=== PATIENT | male | born 1990 | race African-American/Black ===

== ENCOUNTER 2019-02-15 04:43 | Inpatient (IN) | payer MEDICAID ==
[2019-02-15] MEDS ORDERED: NORMAL SALINE 1000 ML 1,000 ML IV ONE ×3 (05:05→06:48)
--- NOTE | 2019-02-15 05:08 | ER Document Report ---
ED General - General Chief Complaint: General Weakness Stated Complaint: WEAKNESS Time Seen by Provider: 02/15/19 05:01 Notes: Patient is a 28-year-old male that comes emergency department for chief complaint of not feeling well for 1 week. He states he feels like he cannot eat but he also cannot get enough fluids. He states that he vomited a little bit a couple of times but there was not much to vomit. He denies diarrhea, fever/chills, particular areas of abdominal pain. He does report frequent urination. He denies any daily medications, denies any diagnosed medical history. He states up until he started feeling bad he was smoking marijuana almost daily but he denies recreational drugs otherwise. He denies smoking or alcohol. He denies any surgeries. When asked he does state he has diabetic family members. TRAVEL OUTSIDE OF THE [place] IN LAST 30 DAYS: No - Related Data Allergies/Adverse Reactions: No Known Allergies Allergy (Unverified 02/15/19 04:52) Past Medical History - General Information source: Patient - Social History Smoking Status: Current Some Day Smoker Drug Abuse: Marijuana Lives with: Spouse/Significant other Family History: Reviewed & Not Pertinent - Medical History Medical History: Negative Surgical Hx: Negative - Immunizations Immunizations up to date: Yes Hx Diphtheria, Pertussis, Tetanus Vaccination: Yes Review of Systems - Review of Systems Constitutional: See HPI EENT: No symptoms reported Cardiovascular: No symptoms reported Respiratory: No symptoms reported Gastrointestinal: See HPI Genitourinary: See HPI Male Genitourinary: No symptoms reported Musculoskeletal: No symptoms reported Skin: No symptoms reported Hematologic/Lymphatic: No symptoms reported Neurological/Psychological: No symptoms reported Physical Exam - Vital signs Vitals: Temp Pulse Resp BP Pulse Ox 97.5 F 120 H 20 149/109 H 99 02/15/19 04:47 02/15/19 04:47 02/15/19 04:47 02/15/19 04:47 02/15/19 04:47 - Notes Notes: GENERAL: Alert, mildly ill-appearing, nontoxic HEAD: Normocephalic, atraumatic. EYES: Pupils equal, round, and reactive to light. Extraocular movements intact. ENT: Oral mucosa extremely dry with parched tongue, tongue midline. Enlarged tonsils with erythema. Airway patent. Nares patent, no nasal septal hematoma, TM's intact. NECK: Full range of motion. Supple. Trachea midline. LUNGS: Clear to auscultation bilaterally, no wheezes, rales, or rhonchi. No respiratory distress. HEART: Tachycardic, normal rhythm. No murmur ABDOMEN: Minimal generalized tenderness, nonspecific, no guarding, bowel sounds present. GENITOURINARY: Deferred EXTREMITIES: Moves all 4 extremities spontaneously. No edema, normal radial and dorsalis pedis pulses bilaterally. No cyanosis. BACK: no cervical, thoracic, lumbar midline tenderness. No saddle anesthesia, normal distal neurovascular exam. NEUROLOGICAL: Alert and oriented x3. Normal speech. [cranial nerves II through XII grossly intact]. SKIN: Warm, dry, normal turgor. No rashes or lesions noted. Course - Re-evaluation Re-evalutation: Patient parched, has frequent urination, tachycardic, reporting symptoms of nausea and reduced appetite with generally feeling unwell for 1 week. Suspect new onset diabetes, given IV fluids, workup pending. Tachycardia almost resolved after IV fluids, Accu-Chek noted to be high, venous blood gas shows metabolic acidosis with pH of 7.13 and low bicarbonate. CBC shows mild leukocytosis with elevation of neutrophils. Urine shows ketones, elevated specific gravity, glucose. EKG shows sinus rhythm at a rate of 95, prolonged QT interval at 513, peaked T waves, no T wave inversions or ST segment changes in consecutive leads. Giving more IV fluids, setting up insulin drip. 2 good peripheral IVs placed. Chemistry finally resulted, shows severe hyperglycemia at greater than 1200, metabolic acidosis with bicarbonate of 8, anion gap of 36, creatinine of 1.57, potassium of 6.3. Insulin drip was started. Giving calcium gluconate. Patient will require ICU admission. I discussed with patient the results and his condition, he states gratefulness and agreement. Discussed patient/treatment with Dr. Dos Santos. Patient has been reevaluated twice more, his coloration is improved, he states he feels much better, his tachycardia has resolved, he appears to be improving on the insulin drip with fluids. Unfortunately recheck chemistry hemolyzed. 02/15/19 07:[address] Segovia, patient accepted to the hospital, he will be admitted to the ICU. - Vital Signs Vital signs: Temp Pulse Resp BP Pulse Ox 97.5 F 120 H 17 139/93 H 96 02/15/19 04:47 02/15/19 04:47 02/15/19 07:00 02/15/19 06:01 02/15/19 07:00 - Laboratory Result Diagrams: 02/15/19 05:25 02/15/19 05:25 Laboratory results interpreted by me: 02/15/19 02/15/19 02/15/19 05:10 05:25 05:25 WBC 10.9 H MCHC 30.8 L Seg Neutrophils % 79.8 H Absolute Neutrophils 8.7 H VBG pH VBG HCO3 Sodium 127.0 L Potassium 6.3 H* Chloride 83 L Carbon Dioxide 8 L* Anion Gap 36 H BUN 24 H Creatinine 1.57 H Est GFR (Non-Af Amer) 54 L Glucose 1291 H* POC Glucose Calcium 11.4 H Direct Bilirubin 0.6 H Alkaline Phosphatase 173 H Total Protein 9.4 H Albumin 5.7 H Urine Glucose (UA) >=500 H Urine Ketones 80 H Urine Blood SMALL H 02/15/19 02/15/19 05:25 05:40 WBC MCHC Seg Neutrophils % Absolute Neutrophils VBG pH 7.17 L* VBG HCO3 12.5 L Sodium Potassium Chloride Carbon Dioxide Anion Gap BUN Creatinine Est GFR (Non-Af Amer) Glucose POC Glucose > 550 H* Calcium Direct Bilirubin Alkaline Phosphatase Total Protein Albumin Urine Glucose (UA) Urine Ketones Urine Blood - EKG Interpretation by Me Additional EKG results interpreted by me: EKG shows sinus rhythm at a rate of 95, prolonged QT interval at 513, peaked T waves, no T wave inversions or ST segment changes in consecutive leads. Critical Care Note - Critical Care Note Total time excluding time spent on procedures (mins): 40 - New-onset diabetes, DKA, hyperkalemia Comments: Please allow 40 minutes of critical care time for evaluation and management of patient with new onset diabetes, DKA, hyperkalemia, acute renal failure. Multiple interventions including IV fluids, calcium gluconate, insulin drip. Multiple re-evaluations. Consultation and admission to the ICU. Discharge - Discharge Clinical Impression: New onset type 1 diabetes mellitus, uncontrolled, Hyperkalemia DKA (diabetic ketoacidoses) Qualifiers: Diabetes mellitus type: type 1 Diabetes mellitus complication detail: without coma Qualified Code(s): E10.10 - Type 1 diabetes mellitus with ketoacidosis without coma Acute renal failure Qualifiers: Acute renal failure type: unspecified Qualified Code(s): N17.9 - Acute kidney failure, unspecified Condition: Serious Disposition: ADMITTED INPATIENT Admitting Provider: Hospitalist Unit Admitted: ICU
[2019-02-15 05:47] LABS: ABSOLUTE LYMPHOCYTES (AUTO) 1.4 10^3/uL (0.5-4.7); ABSOLUTE MONOCYTES (AUTO) 0.8 10^3/uL (0.1-1.4); ABSOLUTE NEUT (AUTO) 8.7 10^3/uL (1.7-8.2); BASOPHILS % (AUTO) 0.2 % (0-2); HEMATOCRIT 48.4 % (37.9-51.0); HEMOGLOBIN 14.9 g/dL (13.5-17.0); LYMPHOCYTES % (AUTO) 13.1 % (13-45); MEAN CORPUSCULAR HEMOGLOBIN 27.3 pg (27.0-33.4); MEAN CORPUSCULAR HGB CONC 30.8 g/dL (32.0-36.0); MEAN CORPUSCULAR VOLUME 89 fl (80-97); MONOCYTES % (AUTO) 6.9 % (3-13); PLATELET COUNT 370 10^3/uL (150-450); RED BLOOD COUNT 5.46 10^6/uL (4.35-5.55); RED CELL DISTRIBUTION WIDTH 13.8 % (11.5-14.0); SEGMENTED NEUTROPHILS % (AUTO) 79.8 % (42-78); TOTAL CELLS COUNTED % (AUTO) 100 %; WHITE BLOOD COUNT 10.9 10^3/uL (4.0-10.5)
[2019-02-15 05:53] LABS: VENOUS BLOOD HCO3 12.5 mmol/L (20-32); VENOUS BLOOD PCO2 35.1 mmHg (35-63)
[2019-02-15 05:55] LABS: VENOUS BLOOD PH 7.17 (7.30-7.42)
[2019-02-15 06:06] LABS: APPEARANCE,URINE CLEAR; BILIRUBIN,URINE NEGATIVE (NEGATIVE); COLOR,URINE COLORLESS; GLUCOSE, URINE >=500 mg/dL (NEGATIVE); KETONES,URINE 80 mg/dL (NEGATIVE); LEUKOCYTE ESTERASE,URINE NEGATIVE (NEGATIVE); NITRITE,URINE NEGATIVE (NEGATIVE); PROTEIN,URINE NEGATIVE (NEGATIVE); URINE SPECIFIC GRAVITY 1.025; UROBILINOGEN,URINE NEGATIVE mg/dL (<2.0)
[2019-02-15 06:09] LABS: ALANINE AMINOTRANSFERASE 50 U/L (21-72); ALBUMIN 5.7 g/dL (3.5-5.0); ALKALINE PHOSPHATASE 173 U/L (38-126); ASPARTATE AMINO TRANSFERASE 26 U/L (17-59); BILIRUBIN,DIRECT 0.6 mg/dL (0.0-0.4); BILIRUBIN,TOTAL 0.8 mg/dL (0.2-1.3); BLOOD UREA NITROGEN 24 mg/dL (7-20); CALCIUM 11.4 mg/dL (8.4-10.2); LIPASE 89.1 U/L (23-300); TOTAL PROTEIN 9.4 g/dL (6.3-8.2)
[2019-02-15 06:14] LABS: CHLORIDE 83 mmol/L (98-107)
[2019-02-15] MEDS ORDERED: DEXTROSE 40% GEL 15 GM TUBE PO PRN ×4 (06:14→08:36)
[2019-02-15] MEDS ORDERED: GLUCAGON,HUMAN RECOMB 1 MG INJ IM PRN ×2 (06:14→08:36)
[2019-02-15] MEDS ORDERED: DEXTROSE 50%-WATER 25 GM/50 ML DISP.SYRIN IV PRN ×4 (06:14→08:36)
[2019-02-15] MEDS ORDERED: INSULIN REG, HUMAN 100 UNIT/ML 3 ML VIAL (PYX) IV ONE (06:15)
[2019-02-15 06:37] LABS: POTASSIUM 6.3 mmol/L (3.6-5.0)
[2019-02-15 06:38] LABS: ANION GAP 36 (5-19); CARBON DIOXIDE 8 mmol/L (22-30)
[2019-02-15 06:48] LABS: GLUCOSE 1291 mg/dL (75-110)
[2019-02-15] MEDS ORDERED: CALCIUM GLUCONATE 1000 MG/10 ML INJ IV ONE (06:49)
[2019-02-15] MEDS: NORMAL SALINE 1000 ML 1,000 ML IV PRN ×3 (07:17→17:11)
[2019-02-15 08:05] LABS: BLOOD UREA NITROGEN 22 mg/dL (7-20); CALCIUM 11.4 mg/dL (8.4-10.2); POTASSIUM 5.9 mmol/L (3.6-5.0)
[2019-02-15] MEDS ORDERED: ONDANSETRON 4 MG TAB.RAPDIS PO PRN (08:09)
[2019-02-15] MEDS ORDERED: ACETAMINOPHEN 325 MG TABLET PO PRN (08:09)
[2019-02-15] MEDS ORDERED: NORMAL SALINE 1000 ML 1,000 ML IV PRN (08:09)
[2019-02-15 08:11] LABS: CHLORIDE 95 mmol/L (98-107); SODIUM 135.7 mmol/L (137-145)
[2019-02-15 08:16] LABS: ANION GAP 32 (5-19)
[2019-02-15 08:21] LABS: CARBON DIOXIDE 9 mmol/L (22-30); GLUCOSE 1007 mg/dL (75-110)
[2019-02-15] MEDS: NORMAL SALINE 100 ML with INSULIN REGULAR, HUMAN 100 UNIT IV PRN ×4 (08:35→14:01)
[2019-02-15] MEDS: ENOXAPARIN SODIUM INJ 30 MG/0.3 ML DISP.SYRIN SUBCUT SCH (10:55)
[2019-02-15] MEDS: FAMOTIDINE 20 MG TABLET PO SCH ×2 (10:56→22:15)
[2019-02-15 14:41] LABS: BLOOD UREA NITROGEN 18 mg/dL (7-20); CALCIUM 10.8 mg/dL (8.4-10.2); CHLORIDE 104 mmol/L (98-107); GLUCOSE 337 mg/dL (75-110)
[2019-02-15 14:48] LABS: CARBON DIOXIDE 15 mmol/L (22-30); SODIUM 141.6 mmol/L (137-145)
[2019-02-15 14:53] LABS: ANION GAP 23 (5-19); POTASSIUM 4.7 mmol/L (3.6-5.0)
--- NOTE | 2019-02-15 16:51 | PDOC H&P ---
History of Present Illness Admission Date/PCP: 02/15/19 07:53 Patient complains of: High blood glucose History of Present Illness: RISHI RIVERA is a 28 year old male with no PMH who presented to [facility] for a one-week history of nausea and weakness. Patient states that he has been unable to tolerate solid foods, he only wants to drink liquids. The patient also reports that he has been unable to sleep because he is getting up approximately every hour to urinate. Laboratory studies upon arrival to the emergency department reveal a blood glucose of 1291. Metabolic acidosis (pH 7.17 bicarb 8). Acute renal failure (creatinine 1.57). Hypernatremia, when sodium corrected for hyperglycemia (Na 146). Urine was positive for ketones, glucose > 500. Unfortunately for this young man, he has been diagnosed with type 1 diabetes today. Upon assessment, the patient is resting comfortably in bed on room air. He endorses polyuria, polydipsia, mild nausea, heat intolerance. He is awake, alert and oriented. Able to answer all questions appropriately. Abdomen is soft, nontender, nondistended. Lungs are clear to auscultation. S1-S2. Mucous membranes are pink and moist. Good skin turgor. Lengthy discussion about inpatient treatment plan as well as ongoing treatment plan once patient is discharged from [facility]. Plan to admit patient to ICU for metabolic acidosis, diabetic ketoacidosis and acute renal failure. Past Medical History Medical History: None EENT Medical History: Reports: Throat - strep throat Past Surgical History Past Surgical History: Reports: None Social History Information Source: Patient Lives with: Spouse/Significant other Smoking Status: Current Some Day Smoker Frequency of Alcohol Use: None Hx Recreational Drug Use: Yes Drugs: Marijuana Hx Prescription Drug Abuse: No - Advance Directive Resuscitation Status: Full Code Family History Family History: DM - mother Parental Family History Reviewed: Yes Children Family History Reviewed: NA Sibling(s) Family History Reviewed.: Yes Medication/Allergy Home Medications: No Home Medications 02/15/19 Allergies/Adverse Reactions: No Known Allergies Allergy (Unverified 02/15/19 04:52) Review of Systems All systems: reviewed and no additional remarkable complaints except as stated Physical Exam Vital Signs: Temp Pulse Resp BP Pulse Ox 98.3 F 102 H 25 H 141/85 H 98 02/15/19 12:00 02/15/19 12:00 02/15/19 14:00 02/15/19 13:58 02/15/19 14:00 Intake & Output 02/14/19 02/15/19 02/16/19 06:59 06:59 06:59 Intake Total 4111 Output Total 3175 Balance 936 Weight 113.398 kg 109.5 kg General appearance: PRESENT: well-developed, well-nourished Head exam: PRESENT: atraumatic Eye exam: PRESENT: conjunctiva pink, PERRLA Mouth exam: PRESENT: moist, tongue midline, other - Enlarged tonsils Throat exam: PRESENT: tonsillar erythema, tonsillogmegaly. ABSENT: tonsillar exudate Neck exam: PRESENT: full ROM Respiratory exam: PRESENT: clear to auscultation yovani, symmetrical, unlabored Cardiovascular exam: PRESENT: RRR Pulses: PRESENT: normal radial pulses, normal dorsalis pedis pul Vascular exam: PRESENT: normal capillary refill GI/Abdominal exam: PRESENT: normal bowel sounds, soft. ABSENT: distended, tenderness Rectal exam: PRESENT: deferred Extremities exam: PRESENT: full ROM. ABSENT: pedal edema Musculoskeletal exam: PRESENT: ambulatory, full ROM, normal inspection Neurological exam: PRESENT: alert, awake, oriented to person, oriented to place, oriented to time, oriented to situation Psychiatric exam: PRESENT: appropriate affect Skin exam: PRESENT: dry, intact, normal color Results Laboratory Results: 02/15/19 05:25 02/15/19 14:06 02/15/19 02/15/19 02/15/19 05:10 05:25 05:25 WBC 10.9 H RBC 5.46 Hgb 14.9 Hct 48.4 MCV 89 MCH 27.3 MCHC 30.8 L RDW 13.8 Plt Count 370 Seg Neutrophils % 79.8 H Lymphocytes % 13.1 Monocytes % 6.9 Eosinophils % 0.0 Basophils % 0.2 Absolute Neutrophils 8.7 H Absolute Lymphocytes 1.4 Absolute Monocytes 0.8 Absolute Eosinophils 0.0 Absolute Basophils 0.0 VBG pH VBG pCO2 VBG HCO3 VBG Base Excess Sodium 127.0 L Potassium 6.3 H* Chloride 83 L Carbon Dioxide 8 L* Anion Gap 36 H BUN 24 H Creatinine 1.57 H Est GFR ( Amer) > 60 Est GFR (Non-Af Amer) 54 L Glucose 1291 H* Calcium 11.4 H Total Bilirubin 0.8 AST 26 ALT 50 Alkaline Phosphatase 173 H Total Protein 9.4 H Albumin 5.7 H Lipase 89.1 Urine Color COLORLESS Urine Appearance CLEAR Urine pH 5.0 Ur Specific [place] 1.025 Urine Protein NEGATIVE Urine Glucose (UA) >=500 H Urine Ketones 80 H Urine Blood SMALL H Urine Nitrite NEGATIVE Ur Leukocyte Esterase NEGATIVE Urine WBC (Auto) 1 Urine RBC (Auto) 1 02/15/19 02/15/19 02/15/19 05:25 06:55 07:30 WBC RBC Hgb Hct MCV MCH MCHC RDW Plt Count Seg Neutrophils % Lymphocytes % Monocytes % Eosinophils % Basophils % Absolute Neutrophils Absolute Lymphocytes Absolute Monocytes Absolute Eosinophils Absolute Basophils VBG pH 7.17 L* VBG pCO2 35.1 VBG HCO3 12.5 L VBG Base Excess -15.0 Sodium Cancelled 135.7 L Potassium Cancelled 5.9 H Chloride Cancelled 95 L Carbon Dioxide Cancelled 9 L* Anion Gap Cancelled 32 H BUN Cancelled 22 H Creatinine Cancelled 1.54 H Est GFR ( Amer) Cancelled > 60 Est GFR (Non-Af Amer) Cancelled 55 L Glucose Cancelled 1007 H* Calcium Cancelled 11.4 H Total Bilirubin AST ALT Alkaline Phosphatase Total Protein Albumin Lipase Urine Color Urine Appearance Urine pH Ur Specific [place] Urine Protein Urine Glucose (UA) Urine Ketones Urine Blood Urine Nitrite Ur Leukocyte Esterase Urine WBC (Auto) Urine RBC (Auto) 02/15/19 14:06 WBC RBC Hgb Hct MCV MCH MCHC RDW Plt Count Seg Neutrophils % Lymphocytes % Monocytes % Eosinophils % Basophils % Absolute Neutrophils Absolute Lymphocytes Absolute Monocytes Absolute Eosinophils Absolute Basophils VBG pH VBG pCO2 VBG HCO3 VBG Base Excess Sodium 141.6 Potassium 4.7 D Chloride 104 Carbon Dioxide 15 L Anion Gap 23 H BUN 18 Creatinine 1.16 Est GFR ( Amer) > 60 Est GFR (Non-Af Amer) > 60 Glucose 337 H Calcium 10.8 H Total Bilirubin AST ALT Alkaline Phosphatase Total Protein Albumin Lipase Urine Color Urine Appearance Urine pH Ur Specific [place] Urine Protein Urine Glucose (UA) Urine Ketones Urine Blood Urine Nitrite Ur Leukocyte Esterase Urine WBC (Auto) Urine RBC (Auto) Status: Imported from PACS Assessment and Plan - Diagnosis (1) Metabolic acidosis Is this a current diagnosis for this admission?: Yes Plan: Secondary to DKA and undiagnosed diabetes pH 7.1 on initial ABG remaining plan listed below (2) DKA (diabetic ketoacidoses) Qualifiers: Diabetes mellitus type: type 1 Diabetes mellitus complication detail: without coma Qualified Code(s): E10.10 - Type 1 diabetes mellitus with ketoacidosis without coma Is this a current diagnosis for this admission?: Yes Plan: Stemming from undiagnosed type 1 diabetes Patient presented with BG > 1200 pH 7.1 HCO3 9 (+) ketonuria Initiated titrating insulin gtt Maintenance IVF with normal saline Switch to D5 half-normal saline once BG<250 (3) New onset type 1 diabetes mellitus, uncontrolled Is this a current diagnosis for this admission?: Yes Plan: New diagnosis of type 1 diabetes No family history of IDDM, mother was diagnosed with gestational diabetes and now type 2 diabetes Patient endorses polyuria & polydipsia Consulted peer educator Consulted registered dietitian Consulted discharge planning for medication assistance, patient states he may or may not have Medicaid Patient will need endocrinology follow-up once discharged home (4) Acute renal failure Qualifiers: Acute renal failure type: unspecified Qualified Code(s): N17.9 - Acute kidney failure, unspecified Is this a current diagnosis for this admission?: Yes Plan: Secondary to hypovolemia stemming from dehydration/DKA Patient endorses polyuria Nearly 3L output today 3L IVF bolus in ED Continue maintenance IVF ARF should improve as patient is rehydrated and once DKA is controlled (5) Hyperkalemia Is this a current diagnosis for this admission?: Yes Plan: Secondary to DKA Should resolve with insulin administration and decreasing blood glucose We will continue to monitor with serial BMPs - Time Time Spent with patient: 15-24 minutes Total Critical Time (Minutes): 20 Medications reviewed and adjusted accordingly: Yes Anticipated discharge: Home - Inpatient Certification Based on my medical assessment, after consideration of the patient's comorbidities, presenting symptoms, or acuity I expect that the services needed warrant INPATIENT care.: Yes I certify that my determination is in accordance with my understanding of Medicare's requirements for reasonable and necessary INPATIENT services [42 CFR 412.3e].: Yes Medical Necessity: Need For IV Fluids, Risk of Complication if Not Cared For in Hospital - Plan Summary Plan Summary: Admit to ICU on an insulin drip. Serial chemistries. Likely downgrade to IMCU tomorrow.
[2019-02-15 17:45] LABS: ANION GAP 8 (5-19); BLOOD UREA NITROGEN 8 mg/dL (7-20); CALCIUM 9.2 mg/dL (8.4-10.2); CHLORIDE 104 mmol/L (98-107); GLUCOSE 148 mg/dL (75-110); POTASSIUM 3.9 mmol/L (3.6-5.0); SODIUM 137.6 mmol/L (137-145)
[2019-02-15 18:02] LABS: CARBON DIOXIDE 26 mmol/L (22-30)
--- NOTE | 2019-02-15 22:55 | EKG REPORT ---
SEVERITY:- ABNORMAL ECG - SINUS RHYTHM PROLONGED QT INTERVAL : Confirmed by: Alisia Talbot 15-Feb-2019 22:54:32
[2019-02-16] MEDS: NORMAL SALINE 1000 ML 1,000 ML IV PRN ×2 (03:06→05:59)
[2019-02-16] MEDS ORDERED: DEXTROSE 5%-1/2 NORMAL SALINE 1,000 ML IV PRN (08:10)
[2019-02-16 09:16] LABS: ALANINE AMINOTRANSFERASE 39 U/L (21-72); ALBUMIN 3.8 g/dL (3.5-5.0); ALKALINE PHOSPHATASE 93 U/L (38-126); ASPARTATE AMINO TRANSFERASE 27 U/L (17-59); BLOOD UREA NITROGEN 9 mg/dL (7-20); CHLORIDE 108 mmol/L (98-107); TOTAL PROTEIN 6.5 g/dL (6.3-8.2)
[2019-02-16 09:18] LABS: ANION GAP 13 (5-19); SODIUM 137.3 mmol/L (137-145)
[2019-02-16 09:19] LABS: BILIRUBIN,DIRECT 0.3 mg/dL (0.0-0.4); BILIRUBIN,TOTAL 0.8 mg/dL (0.2-1.3); CALCIUM 9.3 mg/dL (8.4-10.2); GLUCOSE 158 mg/dL (75-110); POTASSIUM 3.5 mmol/L (3.6-5.0)
[2019-02-16 10:18] LABS: ABSOLUTE BASOPHILS # (AUTO) 0.1 10^3/uL (0.0-0.2); ABSOLUTE EOSINOPHILS # (AUTO) 0.1 10^3/uL (0.0-0.6); ABSOLUTE LYMPHOCYTES (AUTO) 3.5 10^3/uL (0.5-4.7); ABSOLUTE NEUT (AUTO) 4.8 10^3/uL (1.7-8.2); EOSINOPHILS % (AUTO) 0.5 % (0-6); HEMATOCRIT 36.6 % (37.9-51.0); LYMPHOCYTES % (AUTO) 36.9 % (13-45); MEAN CORPUSCULAR HEMOGLOBIN 26.8 pg (27.0-33.4); MEAN CORPUSCULAR HGB CONC 33.5 g/dL (32.0-36.0); MONOCYTES % (AUTO) 10.7 % (3-13); PLATELET COUNT 293 10^3/uL (150-450); RED BLOOD COUNT 4.58 10^6/uL (4.35-5.55); RED CELL DISTRIBUTION WIDTH 13.1 % (11.5-14.0); SEGMENTED NEUTROPHILS % (AUTO) 50.9 % (42-78); TOTAL CELLS COUNTED % (AUTO) 100 %; WHITE BLOOD COUNT 9.5 10^3/uL (4.0-10.5)
[2019-02-16 10:19] LABS: HEMOGLOBIN 12.3 g/dL (13.5-17.0); MEAN CORPUSCULAR VOLUME 80 fl (80-97)
[2019-02-16 10:20] LABS: CARBON DIOXIDE 16 mmol/L (22-30)
[2019-02-16] MEDS: FAMOTIDINE 20 MG TABLET PO SCH ×2 (10:23→22:56)
[2019-02-16] MEDS: ENOXAPARIN SODIUM INJ 30 MG/0.3 ML DISP.SYRIN SUBCUT SCH (10:23)
[2019-02-16] MEDS ORDERED: GLUCAGON,HUMAN RECOMB 1 MG INJ IM PRN (12:41)
[2019-02-16] MEDS ORDERED: DEXTROSE 40% GEL 15 GM TUBE PO PRN ×2 (12:41)
[2019-02-16] MEDS ORDERED: DEXTROSE 50%-WATER 25 GM/50 ML DISP.SYRIN IV PRN ×2 (12:41)
[2019-02-16 15:50] LABS: ANION GAP 13 (5-19); BLOOD UREA NITROGEN 8 mg/dL (7-20); CALCIUM 9.4 mg/dL (8.4-10.2); CARBON DIOXIDE 18 mmol/L (22-30); CHLORIDE 106 mmol/L (98-107); GLUCOSE 245 mg/dL (75-110); POTASSIUM 3.4 mmol/L (3.6-5.0); SODIUM 136.5 mmol/L (137-145)
[2019-02-16] MEDS ORDERED: INSULIN NPH (ISOPHANE), HUMAN 100 UNIT/ML 3 ML SUBCUT SCH (16:00)
--- NOTE | 2019-02-16 17:24 | PDOC PROGRESS REPORT ---
Subjective Progress Note for:: 02/16/19 Subjective:: 28 y.o. M admitted with DKA and new type 1 diabetes diagnosis. The patient was seen this morning on rounds, he is resting comfortably in bed on room air. Blood glucose control was achieved with the insulin gtt. Patient no longer is acidotic. Plan to transition to SC insulin, initiate diabetic diet and downgrade to IMCU. Patient and nursing staff have no complaints or concerns. Patient's physical exam is completely benign. Reason For Visit: DKA, NEW ONSET DIABETES Physical Exam Vital Signs: Temp Pulse Resp BP Pulse Ox 98.1 F 76 19 158/93 H 99 02/16/19 12:00 02/16/19 12:00 02/16/19 14:00 02/16/19 13:59 02/16/19 14:00 Intake & Output 02/15/19 02/16/19 02/17/19 06:59 06:59 06:59 Intake Total 7044 1000 Output Total 4075 560 Balance 2969 440 Weight 113.398 kg 113.9 kg General appearance: PRESENT: no acute distress, well-developed, well-nourished Head exam: PRESENT: atraumatic, normocephalic Eye exam: PRESENT: conjunctiva pink, EOMI, PERRLA. ABSENT: scleral icterus Ear exam: PRESENT: normal external ear exam Mouth exam: PRESENT: moist, tongue midline Neck exam: ABSENT: carotid bruit, JVD, lymphadenopathy, thyromegaly Respiratory exam: PRESENT: clear to auscultation yovani. ABSENT: rales, rhonchi, wheezes Cardiovascular exam: PRESENT: RRR. ABSENT: diastolic murmur, rubs, systolic murmur Pulses: PRESENT: normal dorsalis pedis pul Vascular exam: PRESENT: normal capillary refill GI/Abdominal exam: PRESENT: normal bowel sounds, soft. ABSENT: distended, guarding, mass, organolmegaly, rebound, tenderness Rectal exam: PRESENT: deferred Extremities exam: PRESENT: full ROM. ABSENT: calf tenderness, clubbing, pedal edema Neurological exam: PRESENT: alert, awake, oriented to person, oriented to place, oriented to time, oriented to situation, CN II-XII grossly intact. ABSENT: motor sensory deficit Psychiatric exam: PRESENT: appropriate affect, normal mood. ABSENT: homicidal ideation, suicidal ideation Skin exam: PRESENT: dry, intact, warm. ABSENT: cyanosis, rash Results Laboratory Results: 02/16/19 10:00 02/16/19 15:25 02/15/19 02/16/19 02/16/19 17:38 08:36 08:36 WBC Cancelled RBC Cancelled Hgb Cancelled Hct Cancelled MCV Cancelled MCH Cancelled MCHC Cancelled RDW Cancelled Plt Count Cancelled Seg Neutrophils % Cancelled Lymphocytes % Cancelled Monocytes % Cancelled Eosinophils % Cancelled Basophils % Cancelled Absolute Neutrophils Cancelled Absolute Lymphocytes Cancelled Absolute Monocytes Cancelled Absolute Eosinophils Cancelled Absolute Basophils Cancelled Sodium 137.6 137.3 Potassium 3.9 3.5 L Chloride 104 108 H Carbon Dioxide 26 D 16 L D Anion Gap 8 13 BUN 8 9 Creatinine 0.62 0.83 Est GFR ( Amer) > 60 > 60 Est GFR (Non-Af Amer) > 60 > 60 Glucose 148 H 158 H Calcium 9.2 9.3 Magnesium 1.9 Total Bilirubin 0.8 AST 27 ALT 39 Alkaline Phosphatase 93 Total Protein 6.5 Albumin 3.8 TSH 02/16/19 02/16/19 02/16/19 08:36 10:00 15:25 WBC 9.5 RBC 4.58 Hgb 12.3 L D Hct 36.6 L MCV 80 D MCH 26.8 L MCHC 33.5 RDW 13.1 Plt Count 293 Seg Neutrophils % 50.9 Lymphocytes % 36.9 Monocytes % 10.7 Eosinophils % 0.5 Basophils % 1.0 Absolute Neutrophils 4.8 Absolute Lymphocytes 3.5 Absolute Monocytes 1.0 Absolute Eosinophils 0.1 Absolute Basophils 0.1 Sodium 136.5 L Potassium 3.4 L Chloride 106 Carbon Dioxide 18 L Anion Gap 13 BUN 8 Creatinine 0.90 Est GFR ( Amer) > 60 Est GFR (Non-Af Amer) > 60 Glucose 245 H Calcium 9.4 Magnesium 1.8 Total Bilirubin AST ALT Alkaline Phosphatase Total Protein Albumin TSH 0.38 L Status: Imported from PACS Assessment and Plan - Diagnosis (1) Metabolic acidosis Is this a current diagnosis for this admission?: Yes Plan: Resolved secondary to DKA and undiagnosed diabetes remaining plan listed below (2) DKA (diabetic ketoacidoses) Qualifiers: Diabetes mellitus type: type 1 Diabetes mellitus complication detail: without coma Qualified Code(s): E10.10 - Type 1 diabetes mellitus with ketoacidosis without coma Is this a current diagnosis for this admission?: Yes Plan: Resolved Stemming from undiagnosed type 1 diabetes Patient presented with BG > 1200 pH 7.1 HCO3 9 (+) ketonuria No longer requiring insulin gtt. Patient tolerating p.o. diet Total daily dose 0.4 units/kg/day = 45 units Initiate 20 units Lantus daily, roughly half of the TDD Humalog sliding scale insulin before meals & at bedtime (3) New onset type 1 diabetes mellitus, uncontrolled Is this a current diagnosis for this admission?: Yes Plan: New diagnosis of type 1 diabetes No family history of IDDM, mother was diagnosed with gestational diabetes and now type 2 diabetes Patient endorses polyuria & polydipsia Consulted natural resources extension educator Consulted registered dietitian Consulted discharge planning for medication assistance, patient states he may or may not have Medicaid Patient will need endocrinology follow-up once discharged home (4) Acute renal failure Qualifiers: Acute renal failure type: unspecified Qualified Code(s): N17.9 - Acute kidney failure, unspecified Is this a current diagnosis for this admission?: Yes Plan: Resolved. Creatinine now 0.9 secondary to hypovolemia stemming from dehydration/DKA Treated with IVF ARF should improve as patient is rehydrated and once DKA is controlled (5) Hyperkalemia Is this a current diagnosis for this admission?: Yes Plan: Resolved Secondary to DKA Resolved with insulin administration and decreasing blood glucose We will continue to monitor with serial BMPs - Time Time Spent with patient: 25-34 minutes Medications reviewed and adjusted accordingly: Yes Anticipated discharge: Home Within: within 48 hours - Inpatient Certification Based on my medical assessment, after consideration of the patient's comorbidities, presenting symptoms, or acuity I expect that the services needed warrant INPATIENT care.: Yes I certify that my determination is in accordance with my understanding of Medicare's requirements for reasonable and necessary INPATIENT services [42 CFR 412.3e].: Yes Medical Necessity: Risk of Complication if Not Cared For in Hospital - Plan Summary Plan Summary: Discontinue insulin GTT. Initiate diabetic diet. Discontinue IVF. Downgrade to IMCU Initiate subcutaneous insulin Anticipated discharge 24-48 hours
[2019-02-16] MEDS: INSULIN GLARGINE,HUM.REC.ANLOG 1,000 UNIT/10 ML VIAL SUBCUT SCH (17:46)
[2019-02-16] MEDS: INSULIN LISPRO 100 UNIT/ML 3 ML VIAL SUBCUT SCH ×2 (17:47→22:56)
[2019-02-17 06:19] LABS: HEMATOCRIT 37.9 % (37.9-51.0); HEMOGLOBIN 12.7 g/dL (13.5-17.0); MEAN CORPUSCULAR HGB CONC 33.6 g/dL (32.0-36.0); MEAN CORPUSCULAR VOLUME 81 fl (80-97); PLATELET COUNT 295 10^3/uL (150-450); WHITE BLOOD COUNT 7.8 10^3/uL (4.0-10.5)
[2019-02-17 06:45] LABS: ALANINE AMINOTRANSFERASE 40 U/L (21-72); ALBUMIN 4.3 g/dL (3.5-5.0); ALKALINE PHOSPHATASE 102 U/L (38-126); ANION GAP 19 (5-19); ASPARTATE AMINO TRANSFERASE 30 U/L (17-59); BILIRUBIN,DIRECT 0.4 mg/dL (0.0-0.4); BILIRUBIN,TOTAL 1.3 mg/dL (0.2-1.3); BLOOD UREA NITROGEN 7 mg/dL (7-20); CALCIUM 10.1 mg/dL (8.4-10.2); CARBON DIOXIDE 17 mmol/L (22-30); CHLORIDE 102 mmol/L (98-107); GLUCOSE 251 mg/dL (75-110); POTASSIUM 3.6 mmol/L (3.6-5.0); SODIUM 138.4 mmol/L (137-145); TOTAL PROTEIN 7.1 g/dL (6.3-8.2)
[2019-02-17] MEDS ORDERED: INSULIN NPH (ISOPHANE), HUMAN 100 UNIT/ML 3 ML SUBCUT SCH (08:00)
[2019-02-17] MEDS: INSULIN LISPRO 100 UNIT/ML 3 ML VIAL SUBCUT SCH ×4 (08:20→22:14)
[2019-02-17] MEDS: ENOXAPARIN SODIUM INJ 30 MG/0.3 ML DISP.SYRIN SUBCUT SCH (09:07)
[2019-02-17] MEDS: FAMOTIDINE 20 MG TABLET PO SCH ×2 (09:22→22:14)
[2019-02-17] MEDS: INSULIN GLARGINE,HUM.REC.ANLOG 1,000 UNIT/10 ML VIAL SUBCUT SCH (17:03)
[2019-02-17] MEDS: METOPROLOL SUCCINATE 25 MG TAB.SR.24H PO SCH (17:03)
[2019-02-17] MEDS ORDERED: INSULIN GLARGINE,HUM.REC.ANLOG 1,000 UNIT/10 ML VIAL SUBCUT SCH (18:00)
[2019-02-17] MEDS ORDERED: DEXTROSE 50%-WATER 25 GM/50 ML DISP.SYRIN IV PRN ×2 (19:34)
[2019-02-17] MEDS ORDERED: DEXTROSE 40% GEL 15 GM TUBE PO PRN ×2 (19:34)
[2019-02-17] MEDS ORDERED: GLUCAGON,HUMAN RECOMB 1 MG INJ IM PRN (19:34)
[2019-02-17] MEDS ORDERED: INSULIN GLARGINE,HUM.REC.ANLOG 1,000 UNIT/10 ML VIAL (PYX) SUBCUT ONE (19:39)
--- NOTE | 2019-02-17 19:42 | PDOC PROGRESS REPORT ---
Subjective Progress Note for:: 02/17/19 Subjective:: 28 y.o. M admitted with DKA and new type 1 diabetes diagnosis. The patient was seen this morning on rounds, he is resting comfortably in bed on room air. Blood glucose moderately controlled with the scheduled insulin. Will increase lantus. Likely d/c home tomorrow. Reason For Visit: DKA, NEW ONSET DIABETES Physical Exam Vital Signs: Temp Pulse Resp BP Pulse Ox 98.1 F 88 16 154/77 H 98 02/17/19 14:48 02/17/19 14:48 02/17/19 14:48 02/17/19 14:48 02/17/19 14:48 Intake & Output 02/16/19 02/17/19 02/18/19 06:59 06:59 06:59 Intake Total 7044 2015 1254 Output Total 4071 7610 1600 Balance 4477 -324 -442 Weight 113.9 kg 114.1 kg General appearance: PRESENT: no acute distress Head exam: PRESENT: atraumatic, normocephalic Eye exam: PRESENT: conjunctiva pink, EOMI, PERRLA. ABSENT: scleral icterus Ear exam: PRESENT: normal external ear exam Mouth exam: PRESENT: moist, tongue midline Neck exam: ABSENT: carotid bruit, JVD, lymphadenopathy, thyromegaly Respiratory exam: PRESENT: clear to auscultation yovani. ABSENT: rales, rhonchi, wheezes Cardiovascular exam: PRESENT: RRR. ABSENT: diastolic murmur, rubs, systolic murmur Pulses: PRESENT: normal radial pulses, normal dorsalis pedis pul Vascular exam: PRESENT: normal capillary refill GI/Abdominal exam: PRESENT: normal bowel sounds, soft. ABSENT: distended, guarding, mass, organolmegaly, rebound, tenderness Rectal exam: PRESENT: deferred Extremities exam: PRESENT: full ROM. ABSENT: calf tenderness, clubbing, pedal edema Neurological exam: PRESENT: alert, awake, oriented to person, oriented to place, oriented to time, oriented to situation Psychiatric exam: PRESENT: appropriate affect, normal mood Skin exam: PRESENT: dry, intact, warm. ABSENT: cyanosis, rash Results Laboratory Results: 02/17/19 05:41 02/17/19 05:41 02/17/19 02/17/19 05:41 05:41 WBC 7.8 RBC 4.70 Hgb 12.7 L Hct 37.9 MCV 81 MCH 27.0 MCHC 33.6 RDW 13.0 Plt Count 295 Sodium 138.4 Potassium 3.6 Chloride 102 Carbon Dioxide 17 L Anion Gap 19 BUN 7 Creatinine 0.90 Est GFR ( Amer) > 60 Est GFR (Non-Af Amer) > 60 Glucose 251 H Calcium 10.1 Magnesium 1.8 Total Bilirubin 1.3 AST 30 ALT 40 Alkaline Phosphatase 102 Total Protein 7.1 Albumin 4.3 Status: Imported from PACS Assessment and Plan - Diagnosis (1) Metabolic acidosis Is this a current diagnosis for this admission?: Yes Plan: Resolved secondary to DKA and undiagnosed diabetes remaining plan listed below (2) DKA (diabetic ketoacidoses) Qualifiers: Diabetes mellitus type: type 1 Diabetes mellitus complication detail: without coma Qualified Code(s): E10.10 - Type 1 diabetes mellitus with ketoacidosis without coma Is this a current diagnosis for this admission?: Yes Plan: Resolved Stemming from undiagnosed type 1 diabetes Patient presented with BG > 1200 pH 7.1 HCO3 9 (+) ketonuria No longer requiring insulin gtt. Patient tolerating p.o. diet Total daily dose 0.4 units/kg/day = 45 units Increase Lantus daily dose to 25 units, roughly half of the TDD Humalog sliding scale insulin before meals & at bedtime (3) New onset type 1 diabetes mellitus, uncontrolled Is this a current diagnosis for this admission?: Yes Plan: New diagnosis of type 1 diabetes No family history of IDDM, mother was diagnosed with gestational diabetes and now type 2 diabetes Patient endorses polyuria & polydipsia Consulted rn diabetes educator Consulted registered dietitian Consulted discharge planning for medication assistance, patient states he may or may not have Medicaid Patient will need endocrinology follow-up once discharged home (4) Acute renal failure Qualifiers: Acute renal failure type: unspecified Qualified Code(s): N17.9 - Acute kidney failure, unspecified Is this a current diagnosis for this admission?: Yes Plan: Resolved. Creatinine now 0.9 secondary to hypovolemia stemming from dehydration/DKA Treated with IVF (5) Hyperkalemia Is this a current diagnosis for this admission?: Yes Plan: Resolved Secondary to DKA Resolved with insulin administration and decreasing blood glucose We will continue to monitor with serial BMPs - Time Time Spent with patient: 15-24 minutes Medications reviewed and adjusted accordingly: Yes Anticipated discharge: Home Within: within 24 hours - Inpatient Certification Based on my medical assessment, after consideration of the patient's kostas rbidities, presenting symptoms, or acuity I expect that the services needed warrant INPATIENT care.: Yes I certify that my determination is in accordance with my understanding of Medicare's requirements for reasonable and necessary INPATIENT services [42 CFR 412.3e].: Yes Medical Necessity: Risk of Complication if Not Cared For in Hospital
[2019-02-17] MEDS ORDERED: INSULIN GLARGINE,HUM.REC.ANLOG 1,000 UNIT/10 ML VIAL (PYX) SUBCUT PRN (20:12)
[2019-02-17] MEDS ORDERED: INSULIN GLARGINE,HUM.REC.ANLOG 1,000 UNIT/10 ML VIAL SUBCUT ONE (20:30)
[2019-02-18] MEDS: INSULIN LISPRO 100 UNIT/ML 3 ML VIAL SUBCUT SCH ×2 (08:21→12:38)
[2019-02-18] MEDS: METOPROLOL SUCCINATE 25 MG TAB.SR.24H PO SCH (09:52)
[2019-02-18] MEDS: FAMOTIDINE 20 MG TABLET PO SCH (09:52)
[2019-02-18] MEDS: ENOXAPARIN SODIUM INJ 30 MG/0.3 ML DISP.SYRIN SUBCUT SCH (09:53)
[2019-02-18] MEDS ORDERED: INSULIN LISPRO 100 UNIT/ML 3 ML VIAL SUBCUT SCH (12:18)
[2019-02-18] MEDS ORDERED: INSULIN LISPRO 100 UNIT/ML 3 ML VIAL SUBCUT ONE (13:00)
[2019-02-18 16:41] VITALS: BP 124/64
[2019-02-18] MEDS ORDERED: INSULIN GLARGINE,HUM.REC.ANLOG 1,000 UNIT/10 ML VIAL SUBCUT SCH (18:00)
== END 2019-02-18 18:10 | disposition home or self-care (01) | DRG 638 ==
LOC: ER 04:43 → EH 07:53 → ICU 09:59 → 3W 02-16 15:00
PROVIDERS: ADMIT Internal Medicine; ATTEND Internal Medicine
DX: E10.10 Type 1 diabetes mellitus with ketoacidosis without coma (principal); N17.9 Acute kidney failure, unspecified; E87.0 Hyperosmolality and hypernatremia; E86.0 Dehydration; F17.210 Nicotine dependence, cigarettes, uncomplicated; E87.5 Hyperkalemia; Z79.4 Long term (current) use of insulin; Z83.3 Family history of diabetes mellitus
CPT/HCPCS: 36415; 80048; 80053; 81001; 82010; 82803; 82962; 83036; 83690; 83735; 84443; 85025; 85027; 87070; 87880; 93005; 93010; 96360; 96361; 99291; J0610; J1650; J1815; J7030

== ENCOUNTER 2020-08-04 09:35 | Emergency (ER) | payer SELFPAY ==
[2020-08-04] MEDS ORDERED: NORMAL SALINE 1000 ML 1,000 ML IV ONE (10:12)
--- NOTE | 2020-08-04 10:19 | ER Document Report ---
ED Medical Screen (RME) - General Chief Complaint: Flank Pain Stated Complaint: RIGHT SIDE PAIN Time Seen by Provider: 08/04/20 10:04 TRAVEL OUTSIDE OF THE [place] IN LAST 30 DAYS: No - HPI Notes: 08/04/20 10:13 30 yr old male with hypertension and type 1 diabetes who is noncompliant with medication presents today with with complaints of right testicular pain that radiated to his right lower quadrant and right flank area that started suddenly a day ago. Reports pain is constant, pulsating sensation. States he tried Tylenol with some relief. Reports that the pain came out of nowhere, he was playing video games and suddenly the pain occurred. Denies any nausea vomiting or diarrhea, polyuria polydipsia. Denies any trauma. Reports no issues with urination or bowel movements. Denies any melena. Patient is not on any medications. Denies any chest pain, shortness of breath, fevers or chills I have greeted and performed a rapid initial assessment of this patient. A comprehensive ED assessment and evaluation of the patient, analysis of test results and completion of the medical decision making process will be conducted by additional ED providers. PHYSICAL EXAMINATION: GENERAL: Well-appearing, well-nourished and in no acute distress. HEAD: Atraumatic, normocephalic. EYES: Pupils equal round extraocular movements intact, conjunctiva are normal. NECK: Normal range of motion CV: s1, s2 regular LUNGS: No respiratory distress abd: RLQ abd pain, R cva tenderness on palpation Musculoskeletal: Normal range of motion NEUROLOGICAL: Normal speech, normal gait. SKIN: Warm, Dry, normal turgor, no rashes or lesions noted. Unable to do a testicular exam in triage due to lack of privacy and having a bed for examination - Related Data Allergies/Adverse Reactions: No Known Allergies Allergy (Verified 08/04/20 09:59) Home Medications: denies Past Medical History - Social History Chew tobacco use (# tins/day): No Frequency of alcohol use: None Drug Abuse: Marijuana Renal/ Medical History: Denies: Hx Peritoneal Dialysis - Immunizations Immunizations up to date: Yes Hx Diphtheria, Pertussis, Tetanus Vaccination: Yes Physical Exam - Vital signs Vitals: Temp Pulse Resp BP Pulse Ox 99.1 F 81 16 151/94 H 100 08/04/20 09:40 08/04/20 09:40 08/04/20 09:40 08/04/20 09:40 08/04/20 09:40 Course - Vital Signs Vital signs: Temp Pulse Resp BP Pulse Ox 99.1 F 81 16 151/94 H 100 08/04/20 09:40 08/04/20 09:40 08/04/20 09:40 08/04/20 09:40 08/04/20 09:40
[2020-08-04 11:11] LABS: ABSOLUTE BASOPHILS # (AUTO) 0.1 10^3/uL (0.0-0.2); ABSOLUTE EOSINOPHILS # (AUTO) 0.1 10^3/uL (0.0-0.6); ABSOLUTE MONOCYTES (AUTO) 0.7 10^3/uL (0.1-1.4); ABSOLUTE NEUT (AUTO) 4.1 10^3/uL (1.7-8.2); BASOPHILS % (AUTO) 0.8 % (0-2); EOSINOPHILS % (AUTO) 1.6 % (0-6); HEMATOCRIT 41.2 % (37.9-51.0); HEMOGLOBIN 13.6 g/dL (13.5-17.0); LYMPHOCYTES % (AUTO) 37.4 % (13-45); MEAN CORPUSCULAR HEMOGLOBIN 27.3 pg (27.0-33.4); MEAN CORPUSCULAR VOLUME 83 fl (80-97); PLATELET COUNT 337 10^3/uL (150-450); RED BLOOD COUNT 4.98 10^6/uL (4.35-5.55); RED CELL DISTRIBUTION WIDTH 13.3 % (11.5-14.0); SEGMENTED NEUTROPHILS % (AUTO) 51.2 % (42-78); TOTAL CELLS COUNTED % (AUTO) 100 %
[2020-08-04 11:22] LABS: APPEARANCE,URINE CLEAR; BILIRUBIN,URINE NEGATIVE (NEGATIVE); COLOR,URINE YELLOW; GLUCOSE, URINE NEGATIVE (NEGATIVE); KETONES,URINE NEGATIVE (NEGATIVE); LEUKOCYTE ESTERASE,URINE NEGATIVE (NEGATIVE); NITRITE,URINE NEGATIVE (NEGATIVE); PROTEIN,URINE NEGATIVE (NEGATIVE); URINE SPECIFIC GRAVITY 1.025; UROBILINOGEN,URINE NEGATIVE mg/dL (<2.0)
[2020-08-04 11:27] LABS: ALBUMIN 4.9 g/dL (3.5-5.0); ALKALINE PHOSPHATASE 88 U/L (38-126); ANION GAP 12 (5-19); ASPARTATE AMINO TRANSFERASE 32 U/L (17-59); BILIRUBIN,DIRECT 0.2 mg/dL (0.0-0.4); BILIRUBIN,TOTAL 0.5 mg/dL (0.2-1.3); BLOOD UREA NITROGEN 11 mg/dL (7-20); CARBON DIOXIDE 27 mmol/L (22-30); CHLORIDE 104 mmol/L (98-107); GLUCOSE 151 mg/dL (75-110); POTASSIUM 3.9 mmol/L (3.6-5.0); TOTAL PROTEIN 7.8 g/dL (6.3-8.2)
--- NOTE | 2020-08-04 11:58 | RADIOLOGY REPORT (SQ) ---
EXAM DESCRIPTION: CT ABD/PELVIS WITH IV ONLY IMAGES COMPLETED DATE/TIME: 08/04/2020 11:41 am REASON FOR STUDY: RLQ, R flank, R testicular pain x 1day, no n/v/d COMPARISON: None. TECHNIQUE: CT scan of the abdomen and pelvis performed using helical scanning technique with dynamic intravenous contrast injection. No oral contrast. Images reviewed with lung, soft tissue, and bone windows. Reconstructed coronal and sagittal MPR images reviewed. Delayed images for evaluation of the urinary system also acquired. All images stored on PACS. All CT scanners at this facility use dose modulation, iterative reconstruction, and/or weight based d osing when appropriate to reduce radiation dose to as low as reasonably achievable (ALARA). [facility]: Dose Right [facility]: CareDose [facility]: Dose Right [facility]: Teradose 4D [facility]: [employer] CONTRAST TYPE AND DOSE: contrast/concentration: Isovue 350.00 mmol/ml; Total Contrast Delivered: 99. 0 ml; Total Saline Delivered: 72.0 ml RENAL FUNCTION: None required. The patient is less than 50 years old. RADIATION DOSE: CT Rad equipment meets quality standard of care and radiation dose reduction techniq ues were employed. CTDIvol: 12.7 - 17.8 mGy. DLP: 1898 mGy-cm.. LIMITATIONS: None. FINDINGS: LOWER CHEST: No significant findings. No nodules or infiltrates. LIVER: Normal size. Steatosis. No masses. No dilated ducts. SPLEEN: Normal size. No focal lesions. PANCREAS: No masses. No significant calcifications. No adjacent inflammation or peripancreatic fluid collections. Pancreatic duct not dilated. GALLBLADDER: No identified stones by CT criteria. No inflammatory changes to suggest cholecystitis. ADRENAL GLANDS: No significant masses or asymmetry. RIGHT KIDNEY AND URETER: No solid masses. No significant calcifications. No hydronephrosis or hyd roureter. LEFT KIDNEY AND URETER: No solid masses. No significant calcifications. No hydronephrosis or hydr oureter. AORTA AND VESSELS: No aneurysm. No dissection. Renal arteries, SMA, celiac without stenosis. RETROPERITONEUM: No retroperitoneal adenopathy, hemorrhage or masses. BOWEL AND PERITONEAL CAVITY: No masses or inflammatory changes. No free fluid or peritoneal masses. APPENDIX: Normal. PELVIS: No mass. No free fluid. Normal bladder. ABDOMINAL WALL: No masses. No hernias. BONES: No significant or acute findings. OTHER: No other significant finding. IMPRESSION: No acute findings. No explanation for pain. TECHNICAL DOCUMENTATION: JOB ID: [id number] Quality ID # [id number]: Final reports with documentation of one or more dose reduction techniques (e.g., Au tomated exposure control, adjustment of the mA and/or kV according to patient size, use of iterative reconstruction technique) 2010 [employer]- All Rights Reserved Reading location - IP/workstation name: [email or web address]
--- NOTE | 2020-08-04 12:13 | RADIOLOGY REPORT (SQ) ---
EXAM DESCRIPTION: U/S SCROTUM W/DOPPLER IMAGES COMPLETED DATE/TIME: 08/04/2020 11:26 am REASON FOR STUDY: R testicular pain x 1 day COMPARISON: None. TECHNIQUE: Static and realtime castillo scale imaging of the scrotum and testes. Selected color Doppler and spectral images recorded to document blood flow. LIMITATIONS: None. FINDINGS: RIGHT: TESTICLE: Normal size, 3.3 cm. Normal echotexture. Normal blood flow. No mass. EPIDIDYMIS: Normal. HYDROCELE OR VARICOCELE: No. HERNIA OR EXTRA-TESTICULAR MASS: No. OTHER: No other significant finding. LEFT: TESTICLE: Normal size, 3.7 cm. Normal echotexture. Normal blood flow. No mass. EPIDIDYMIS: Normal. HYDROCELE OR VARICOCELE: No. HERNIA OR EXTRA-TESTICULAR MASS: No. OTHER: No other significant finding. IMPRESSION: NORMAL SCROTAL ULTRASOUND. NO EVIDENCE OF TESTICULAR MASS OR TORSION. TECHNICAL DOCUMENTATION: JOB ID: [id number] 2010 [employer]- All Rights Reserved Reading location - IP/workstation name: [email or web address]
[2020-08-04] MEDS ORDERED: KETOROLAC TROMETHAMINE INJ/PF 30 MG/1 ML SDV IV ONE (12:59)
--- NOTE | 2020-08-04 13:01 | ER Document Report ---
ED General - General Chief Complaint: Abdominal Pain Stated Complaint: RIGHT SIDE PAIN Time Seen by Provider: 08/04/20 10:04 Primary Care Provider: SHILPI MUKHERJEE MD [ACTIVE STAFF] - Follow up in 3-5 days TRAVEL OUTSIDE OF THE [place] IN LAST 30 DAYS: No - HPI Onset: Other - 2 days ago Onset/Duration: Sudden Quality of pain: Sharp Exacerbated by: Movement Similar symptoms previously: No Recently seen / treated by doctor: No Notes: Patient is a 30-year-old male with a past medical history of diabetes and hypertension who presents with right-sided flank pain. Patient states symptoms began about 2 nights ago around 1 AM when he was playing video games. He states he felt a sudden sharp pain in his right side that radiated to his right lower abdomen. Pain is worse with moving. He denies chest pain or shortness of pedro ath. No cough or fever. He denies any urinary symptoms. No diarrhea or constipation. He has not had this kind of pain before. He denies any trauma. He denies any testicular pain. He denies any discharge. He does mention a history of diabetes and hypertension. He is not currently on any medication. He does have a family doctor. - Related Data Allergies/Adverse Reactions: No Known Allergies Allergy (Verified 08/04/20 09:59) Home Medications: denies Past Medical History - Social History Smoking Status: Former Smoker Chew tobacco use (# tins/day): No Frequency of alcohol use: None Drug Abuse: Marijuana Family History: DM - mother Patient has homicidal ideation: No - Past Medical History Cardiac Medical History: Reports: Hx Hypertension Endocrine Medical History: Reports: Hx Diabetes Mellitus Type 2 Renal/ Medical History: Denies: Hx Peritoneal Dialysis - Immunizations Immunizations up to date: Yes Hx Diphtheria, Pertussis, Tetanus Vaccination: Yes Review of Systems - Review of Systems Constitutional: denies: Chills, Fever EENT: denies: Nose congestion, Sinus pressure, Mouth pain Cardiovascular: denies: Chest pain, Palpitations, Syncope Respiratory: denies: Cough, Hurts to breathe, Short of breath Gastrointestinal: Abdominal pain. denies: Diarrhea, Nausea, Vomiting, Constipation Genitourinary: No symptoms reported. denies: Burning, Dysuria, Discharge, Hematuria, Pain Male Genitourinary: denies: Testicular pain, Penile discharge Musculoskeletal: Back pain. denies: Muscle pain, Muscle stiffness, Neck pain Skin: denies: Lesions, Rash Hematologic/Lymphatic: No symptoms reported Neurological/Psychological: denies: Weakness, Seizure Physical Exam - Vital signs Vitals: Temp Pulse Resp BP Pulse Ox 99.1 F 81 16 151/94 H 100 08/04/20 09:40 08/04/20 09:40 08/04/20 09:40 08/04/20 09:40 08/04/20 09:40 Notes: VITAL SIGNS: Within normal limits. GENERAL: No acute distress, non-toxic appearance. Resting comfortably, playing on his phone HEAD: Normal with no signs of head trauma. EYES: EOMI, conjunctiva normal, no discharge. EARS: Hearing grossly intact. NOSE: Normal. NECK: Normal range of motion, no tenderness, no JVD. CHEST: Clear breath sounds bilaterally. No wheezes, rales, or rhonchi. CARDIAC: Regular rate and rhythm. S1 and S2, without murmurs, gallops, or rubs. VASCULAR: No Edema. ABDOMEN: Normal and soft with no tenderness. Abdomen is nontender to palpation. No right lower quadrant tenderness. No rebound. No guarding. No rashes. GASTROINTESTINAL: Bowel sounds normal GENITOURINARY: Normal, No tenderness. Refused testicular exam. LYMPATHTIC: No lymphadenopathy noted. MUSCULOSKELETAL: Good range of motion of all major joints. Extremities without clubbing, cyanosis or edema. Mild discomfort to palpation of right flank. No posterior spinal tenderness. Range of motion of lower extremities intact. No rashes at the site of pain. NEUROLOGICAL: Alert and oriented x 3. No focal sensory or strength deficits. Speech normal. Follows commands appropriately. PSYCHIATRIC: Normal Affect, judgement and mood. SKIN: Normal appearance with no rashes or lesions. Course - Re-evaluation Re-evalutation: 08/04/20 13:11 Patient appears comfortable on exam. He is playing on his phone. He does not appear in acute distress. His CT and ultrasound were negative for any acute pathology. He is declining a testicular exam for me and states it does not hurt in the testicles. Complaining of some pain at his right side. It is worse with movement. Patient does have a small amount of blood in his urine. Possible differential could be a passed kidney stone. No signs of UTI. He does not remember seeing a stone. Also, could be muscular as symptoms are worse with movement. We will treat with Toradol and reevaluate. Also discussed with him that he needs to follow-up with his family doctor about the diabetes and hypertension. Currently his blood sugar is slightly elevated at 150 and there is no evidence for DKA. He feels better on reassessment. He is very agreeable to the plan. He was instructed he could take [id number] NSAIDs and acetaminophen as needed. He was given strict return precautions including fever, urinary symptoms, and worsening pain and patient verbalized understanding 08/04/20 18:54 - Vital Signs Vital signs: Temp Pulse Resp BP Pulse Ox 98.4 F 59 L 18 139/87 H 98 08/04/20 14:20 08/04/20 14:20 08/04/20 14:20 08/04/20 14:20 08/04/20 14:20 - Laboratory Result Diagrams: 08/04/20 10:50 08/04/20 10:50 Laboratory results interpreted by me: 08/04/20 08/04/20 10:50 10:50 Glucose 151 H Urine Blood SMALL H - Diagnostic Test Radiology reviewed: Image reviewed, Reports reviewed Discharge - Discharge Clinical Impression: Flank pain Condition: Good Disposition: HOME, SELF-CARE Instructions: Abdominal Pain ([facility]) Additional Instructions: Take Tylenol or ibuprofen as directed. Please follow-up with your family d siva. Please return for any vomiting, fevers, or worsening pain. Referrals: SHILPI MUKHERJEE MD [ACTIVE STAFF] - Follow up in 3-5 days
[2020-08-04 14:26] VITALS: BP 139/87
== END 2020-08-04 14:27 | disposition home or self-care (01) ==
LOC: ER 09:35
DX: R10.9 Unspecified abdominal pain (principal); R31.9 Hematuria, unspecified; M54.9 Dorsalgia, unspecified; E11.9 Type 2 diabetes mellitus without complications; I10 Essential (primary) hypertension; F12.10 Cannabis abuse, uncomplicated; Z87.891 Personal history of nicotine dependence
CPT/HCPCS: 99285; 96361; 96374; 36415; 83690; 85025; 80053; 81001; 76870; 93976; 74177; J1885; J7030